=== PATIENT | male | born 1945 | race Caucasian/White ===

== ENCOUNTER → 2016-08-12 | Outpatient (CLI) | payer OTHER | LOC: BHFA 10:00 | PROVIDERS: ATTEND Internal Medicine Cardiovascular Disease | DX: R06.02 Shortness of breath (principal); I50.22 Chronic systolic (congestive) heart failure ==

== ENCOUNTER → 2017-06-01 | Outpatient (CLI) | payer OTHER | LOC: FIMAGING 07:57 | PROVIDERS: ATTEND Physician Assistant | DX: K80.20 Calculus of gallbladder without cholecystitis without obstruction (principal) ==

== ENCOUNTER → 2017-06-17 | Outpatient (CLI) | payer OTHER | LOC: BHFA 08:30 | PROVIDERS: ATTEND Internal Medicine Cardiovascular Disease | DX: I50.9 Heart failure, unspecified (principal) ==

== ENCOUNTER 2017-06-25 07:57 | Day surgery (SDC) | payer OTHER ==
[2017-06-25] MEDS ORDERED: LIDOCAINE 1% 2 ML INJ ID PRN (08:05)
[2017-06-25] MEDS ORDERED: ceFAZolin 2 GM/SWFI 2 GM/20 ML SYR IVP ONE (08:05)
[2017-06-25] MEDS ORDERED: LR 1,000 ML IV ONE (08:05)
[2017-06-25] MEDS ORDERED: HEPARIN 1000 UNIT/1 ML MDV ONE (08:47)
[2017-06-25] MEDS ORDERED: BUPIVACAINE 0.5% 30 ML SDV ONE (08:47)
[2017-06-25] MEDS ORDERED: ceFAZolin 1 GM VIAL ONE (08:48)
[2017-06-25] MEDS ORDERED: MIDAZOLAM 2 MG/2 ML VIAL IVP ONE ×2 (09:10→09:59)
--- NOTE | 2017-06-25 09:10 | PDANEPAE ---
ANE History of Present Illness h/o nonischemic heart failure p/f lap yuniel. ICD reprogrammed by [facility] rep in pre-op - set to DOO pacing at 75 bpm. Rep will reactivate ICD in PACU. ANE Past Medical History - Cardiovascular History Hx Hypertension: No Hx Arrhythmias: Yes Hx Chest Pain: No Hx CHF / Valvular Disease: Yes Hx Palpitations: Yes Cardiovascular History Comment: PACER/DEFIB. TRICUSPID/MITRAL VALVE. RUNS LOW BP @80s/60 - Pulmonary History Hx COPD: No Hx Asthma/Reactive Airway Disease: Yes Hx Recent Upper Respiratory Infection: No Hx Oxygen in Use at Home: No Hx Sleep Apnea: No Sleep Apnea Screening Result - Last Documented: Negative - Neurologic History Hx Cerebrovascular Accident: No Hx Seizures: No Hx Dementia: No Neurologic History Comment: OCCAS HEADACHES - Endocrine History Hx Diabetes: No Hypothyroid: No Hyperthyroid: No Obesity: no - Renal History Hx Renal Disorders: No - Liver History Hx Hepatic Disorders: No Hepatic History Comment: MILD NAUSEA W/GALL BLADDER - Neurological & Psychiatric Hx Hx Neurological and Psychiatric Disorders: No - Cancer History Hx Cancer: No - Congenital Disorder History Hx Congenital Disorders: No - GI History GERD: no Hx Gastrointestinal Disorders: Yes Gastrointestinal History Comment: GASTRITIS -- MILD. MILD NAUSEA - Other Health History Other Health History: DRY SKIN. DVT IN PAST - Surgical History Prior Surgeries: ABLATION CARDIAC. IMPLANT PACER/DEFIB ANE Review of Systems Review of systems is: negative Review of Systems: - Exercise capacity METS (RN): 4 METS - Pacemaker Pacemaker Type: Permanent Pacer/Defib Pacemaker Senior Software Analyst: [employer] Pacemaker Model: [id number] Date Pacemaker Last Checked: 03/24/18 ANE Patient History - Allergies Allergies/Adverse Reactions: No Known Allergies Allergy (Unverified 06/05/13 03:37) - Home Medications Home medications: home medication list seen and reviewed Home Medications: Aspirin [Aspirin 81mg] 81 mg PO DAILY 12/04/10 [Last Taken 06/23/17 21:00] CARVEDILOL 25 mg PO BID 12/04/10 [Last Taken 06/25/17 06:30] Zolpidem Tartrate [Ambien] 5 mg PO HSPRN PRN 12/04/10 [Last Taken 06/24/17 21:00 ] Entresto 24 mg/26 mg (RX) 06/24/17 [Last Taken 06/25/17 06:00 12 mg] Lasix 06/24/17 [Last Taken 06/24/17 06:00] Eplerenone 06/25/17 [Last Taken 06/24/17 06:30] Potassium Chloride 20 meq PO DAILY 06/25/17 [Last Taken 06/24/17 21:00] - NPO status NPO Since - Liquids (Date): 06/25/17 NPO Since - Liquids (Time): 06:30 NPO Since - Solids (Date): 06/24/17 NPO Since - Solids (Time): 19:00 - Smoking Hx Smoking Status: Never smoked - Family Anes Hx Family Hx Anesthesia Complications: NEG ANE Labs/Vital Signs - Vital Signs Blood Pressure: 92/68 Heart Rate: 63 Respiratory Rate: 16 O2 Sat (%): 93 Height: 181.61 cm Weight: 72.121 kg ANE Physical Exam - Airway Neck exam: FROM Mallampati Score: Class 1 Mouth exam: normal dental/mouth exam - Pulmonary Pulmonary: no respiratory distress - Cardiovascular Cardiovascular: regular rate and rhythym - ASA Status ASA Status: IV ANE Anesthesia Plan Anesthesia Plan: general endotracheal anesthesia Lines/Monitors: arterial line
[2017-06-25] MEDS ORDERED: fentaNYL 100 MCG/2 ML INJ ONE ×3 (09:14→11:52)
--- NOTE | 2017-06-25 09:14 | PDHPUP ---
History & Physical Update H&P update statement: This history and physical update is based on an assessment of the patient which was completed after admission or registration (within 24 hours), but prior to the surgery/procedure.
[2017-06-25] MEDS ORDERED: LIDOCAINE 2% 5 ML SDV ONE (09:15)
[2017-06-25] MEDS ORDERED: EPINEPHrine 1 MG/10 ML SYR IVP ONE (09:21)
[2017-06-25] MEDS ORDERED: ROCURONIUM 50 MG/5 ML VIAL ONE ×2 (09:56)
[2017-06-25] MEDS ORDERED: DEXAMETHASONE 4 MG/ML VIAL ONE (09:57)
[2017-06-25] MEDS ORDERED: ceFAZolin 1 GM/5 ML SYR ONE (09:59)
[2017-06-25] MEDS ORDERED: OXYCODONE/APAP 5/325 TAB PO PRN (10:29)
[2017-06-25] MEDS ORDERED: ONDANSETRON 4 MG/2 ML VIAL IVP PRN (10:29)
[2017-06-25] MEDS ORDERED: HYDROmorphONE/DILAUDID 1 MG/ML INJ IVP PRN (10:29)
[2017-06-25] MEDS ORDERED: HYDROCODONE/APAP 5/325 TAB PO PRN (10:29)
[2017-06-25] MEDS ORDERED: NALOXONE HCL 0.4 MG/ML INJ IVP PRN (10:29)
[2017-06-25] MEDS ORDERED: LR 500 ML IV PRN (10:29)
[2017-06-25] MEDS ORDERED: ALBUTEROL 3 ML DEYVIAL IH PRN (10:29)
[2017-06-25] MEDS ORDERED: ACETAMINOPHEN 500 MG TAB PO PRN (10:29)
[2017-06-25] MEDS ORDERED: METOCLOPRAMIDE 10 MG/2 ML VIAL IVP PRN (10:29)
[2017-06-25] MEDS ORDERED: PHENYLEPHRINE HCL 100 MCG/ML SYR IVP PRN (10:29)
[2017-06-25] MEDS ORDERED: PROMETHAZINE HCL 25 MG/ML INJ IVP PRN (10:29)
--- NOTE | 2017-06-25 11:16 | POSTOPPROG ---
Post Op Note Date of Operation: 06/25/17 Surgeon: Massiel Meek Gluing Machine Adjuster: [place] Anesthesiologist: Catr[place]ita Anesthesia: GET(General Endotracheal) Pre-op Diagnosis: Cholecystitis Post-op Diagnosis: same Indication: same Procedure: Lap Chayo and wedge liver biopsy Findings: Subacute cholecystitis and probably mild cardia cirrosis Inf/Abcess present in the surg proc area at time of surgery?: No EBL: Minimal
--- NOTE | 2017-06-25 11:53 | POSTANESTH ---
Post Anesthetic Evaluation Cardiovascular Status: Normal, Stable Respiratory Status: Normal, Stable Level of Consciousness/Mental Status: Can Participate in Eval Pain Control: Adequate, Prn Tx Ordered Nausea/Vomiting Control: Adequate, Prn Tx Ordered Complications Possibly Related to Anesthesia: None Noted
[2017-06-25] MEDS: fentaNYL 100 MCG/2 ML INJ IVP PRN ×2 (11:54→12:03)
[2017-06-25] MEDS ORDERED: HYDROmorphONE/DILAUDID 1 MG/ML INJ ONE (12:18)
[2017-06-25 15:11] VITALS: BP 94/70; RESP 16; TEMP 205.7; O2SAT 95
[2017-06-25 15:13] VITALS: PULSE 66
--- NOTE | 2017-06-26 21:01 | GOP ---
[f rep st] OPERATIVE REPORT DATE OF OPERATION: 06/25/2017 SURGEON: Luis Fernando Haider MD POUND ATTENDANT: Massiel Meek NP. PREOPERATIVE DIAGNOSIS: Chronic cholecystitis. POSTOPERATIVE DIAGNOSIS: Subacute cholecystitis and mild cardiac cirrhosis. PROCEDURE PERFORMED: Laparoscopic cholecystectomy and wedge liver biopsy. FINDINGS: Patient was found to have a markedly inflamed gallbladder which was firmly adherent to the hepatic fossa and some mild scarring and changes in the liver suggestive of cardiac cirrhosis. DESCRIPTION OF PROCEDURE: The patient was taken to the operating room where he received satisfactory general endotracheal anesthesia, placed in supine position, and prepped and draped in the usual ster ile fashion. An infraumbilical incision was made. A Veress needle inserted. Pneumoperitoneum was e stablished. Trocar was introduced. Laparoscope introduced. Good visualization was obtained. Three other trocars in the upper abdomen were placed under direct vision. The gallbladder was elevated up . Adhesions were taken down until the entire gallbladder could be exposed. The cystic triangle was carefully dissected free. The dissection was somewhat difficult because of the contracted nature of the inflamed gallbladder tissue and the thickness of the liver. The gallbladder was taken down from the fundus off the bed of the liver with electrocautery until the cystic triangle could be completely exposed. The cystic duct and cystic artery were dissected free, multiply hemoclipped and divided. After a clear view was established, much care to avoid the common bile duct, which was visualized. T he gallbladder was extracted by midline port site. There was 1 bleeding spot in the hepatic bed that was difficult to stop, but was eventually secured with hemoclips and electrocautery and then packed with some Daylin packing. Hemostasis was assured. Trocars removed under direct vision. Trocar site s were closed with 0 Vicryl for the fascia, 4-0 Monocryl subcuticular stitch for the skin, and all la yers were infiltrated with 0.5% Marcaine. Blood loss was negligible. Taken to recovery room in good condition having appropriate vital signs. A wedge biopsy was taken of the right lobe of the liver a nd that specimen was removed and sent to Pathology. Hemostasis was obtained with electrocautery. Th is was done prior to removal of the trocars obviously. /[id number]/MODL
== END 2017-06-25 15:14 | disposition home or self-care (01) ==
LOC: FSGY 07:57
PROVIDERS: ATTEND Surgery
PROC: 0FB14ZX Excision of Right Lobe Liver, Percutaneous Endoscopic Approach, Diagnostic (ICD-10-PCS; principal; 2017-06-25 09:45)
PROC: 0FT44ZZ Resection of Gallbladder, Percutaneous Endoscopic Approach (ICD-10-PCS; principal; 2017-06-25 09:45)
DX: K80.10 Calculus of gallbladder with chronic cholecystitis without obstruction (principal); K74.0 Hepatic fibrosis; K29.70 Gastritis, unspecified, without bleeding; I50.23 Acute on chronic systolic (congestive) heart failure; J45.909 Unspecified asthma, uncomplicated; E03.9 Hypothyroidism, unspecified; I10 Essential (primary) hypertension; G47.00 Insomnia, unspecified; E55.9 Vitamin D deficiency, unspecified; Z79.899 Other long term (current) drug therapy; Z95.810 Presence of automatic (implantable) cardiac defibrillator; Z88.2 Allergy status to sulfonamides
CPT/HCPCS: J0690; J1100; J1170; J2250; J3010

== ENCOUNTER → 2017-09-01 | Outpatient (CLI) | payer OTHER | LOC: BHFA 11:00 | PROVIDERS: ATTEND Internal Medicine Cardiovascular Disease | DX: I50.9 Heart failure, unspecified (principal) ==

== ENCOUNTER 2018-02-24 18:32 | Emergency (ER) | payer OTHER ==
--- NOTE | 2018-02-24 19:54 | EDPHY ---
H & P Smoking Status: Never smoked Time Seen by Provider: 02/24/18 18:55 HPI/ROS: 72-year-old male here with laceration to the left 2nd digit. States he was using a knife to cut vegetables when he slipped and cut the extensor aspect of the distal phalanx of left 2nd digit. He is taking Coumadin and had a difficult time controlling the bleeding at home. Denies any numbness or loss of range of motion. (Abhilash Nicholson) Physical Exam: General: Alert and oriented. Nontoxic appearing. No acute distress HEENT: Pupils PERRLA. No oral lesions. Cardiopulmonary: Regular rate and rhythm. No lower extremity edema Skin: [place] warm and dry. No lesions. 1.5 cm laceration just proximal to the fingernail of the left 2nd digit. No joint involvement. No nail bed injury. Muscle skeletal: Moving all 4 extremities. Equal strength in upper extremities and lower extremities. Ambulatory. (Abhilash Nicholson) Constitutional: Initial Vital Signs Temperature (C) 36.4 C 02/24/18 18:42 Heart Rate 60 02/24/18 18:42 Respiratory Rate 16 02/24/18 18:42 Blood Pressure 121/78 H 02/24/18 18:42 O2 Sat (%) 95 02/24/18 18:42 O2 Delivery Mode Room Air Allergies/Adverse Reactions: No Known Allergies Allergy (Verified 02/24/18 18:40) Home Medications: Medication Instructions Recorded CARVEDILOL 25 mg PO BID 12/04/10 Zolpidem Tartrate [Ambien] 5 mg PO HSPRN PRN 12/04/10 Entresto 24 mg/26 mg (RX) 06/24/17 Lasix 06/24/17 Eplerenone 06/25/17 Potassium Chloride 20 meq PO DAILY 06/25/17 Coumadin 02/24/18 Medical Decision Making Procedures: Procedure: Laceration repair. Verbal consent was obtained from the patient. The finger laceration on the left 2nd digit was anesthetized in the usual fashion. The wound was irrigated, draped and explored to its base. There were no deep structures involved. No tendon injury was identified. The wound was repaired with 5-0 nylon. Four simple sutures were placed. The wound repair was well approximated. Surgicel was used to control bleeding. The procedure was performed by myself. (Abhilash Nicholson) ED Course/Re-evaluation: I did not see this patient while he was in the emergency department. However his care was discussed with the PA while the patient was in the department. I agree with treatment plan and management (Piyush Fan) Differential Diagnosis: Joint injury, tendon injury, foreign body, uncontrolled bleeding (Abhilash Nicholson) Departure - Departure Disposition: Home, Routine, Self-Care Clinical Impression: Finger laceration Condition: Good Instructions: Laceration (ED) Additional Instructions: Follow-up in 1 week for suture removal. Referrals: Adam Valles MD [Primary Care Provider] - As per Instructions
[2018-02-24 20:13] VITALS: BP 92/53
== END 2018-02-24 20:13 | disposition home or self-care (01) ==
PROC: 0HQGXZZ Repair Left Hand Skin, External Approach (ICD-10-PCS; principal; 2018-02-24)
DX: S61.211A Laceration without foreign body of left index finger without damage to nail, initial encounter (principal); W26.0XXA Contact with knife, initial encounter; Y93.G1 Activity, food preparation and clean up; Y99.8 Other external cause status; Z79.01 Long term (current) use of anticoagulants

== ENCOUNTER → 2018-06-10 | Outpatient (CLI) | payer OTHER | LOC: BHFA 14:00 | PROVIDERS: ATTEND Internal Medicine Cardiovascular Disease | DX: I50.9 Heart failure, unspecified (principal); R06.02 Shortness of breath ==

== ENCOUNTER → 2018-07-15 | Outpatient (CLI) | payer OTHER | LOC: BHFA 15:30 | PROVIDERS: ATTEND Internal Medicine Cardiovascular Disease | DX: R06.02 Shortness of breath (principal); I50.9 Heart failure, unspecified; Z76.82 Awaiting organ transplant status ==

== ENCOUNTER 2018-09-26 14:56 | Emergency (ER) | payer OTHER ==
--- NOTE | 2018-09-26 16:49 | EDPHY ---
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 Is mostly on the right side and he finished his medications about last . The next day started having bilateral redness in his groin started 1st on the right now it is on both sides and a little bit on the back. It is itching and burning but not particularly painful. He started taking Keflex on Wednesday which was left over from previous and saw Dr. Gutierrez primary care on Wednesday told him to continue the antibiotic. Today his rash is still red and burning and itching. Not associated with fever or chills or urinary symptoms. REVIEW OF SYSTEMS: Eye: no change in vision ENT: no sore throat Cardiac: no chest pain or syncope Pulmonary: no cough or SOB Abdomen: no vomiting, diarrhea, abdominal pain Musculoskeletal: no back pain Skin: HPI Neuro: no headache Constitutional: no fever : no urinary symptoms A comprehensive 10 point review of systems is otherwise negative aside from elements mentioned in the history of present illness. PAST MEDICAL HISTORY: Includes heart failure, AICD, hypercholesterolemia. On warfarin Social history: , nonsmoker Temperature 36.4 degrees General Appearance: Alert and conversant, cooperative. Eyes: No scleral icterus. ENT, Mouth: Normal mucous membranes. Respiratory: Normal respiratory effort, breath sounds equal, lungs are clear to auscultation. Cardiovascular: Regular rate and rhythm. Gastrointestinal: Abdomen is soft and non tender. Neurological: Alert, face symmetric, normal motor and sensory in extremities. Skin: Patient has erythema in both groins which is dry and not wet. Has the appearance of vasculitis with a nonblanching redness. Not raised. There is faint erythema on his lower back extending into his proximal buttocks. There is not tender to palpation and only very slightly warm. No lymphangitis. No eschar or crepitus or vesicles. No satellite lesions. Non blanchable. Musculoskeletal: No peripheral edema. Psychiatric: Not agitated. Emergency Department course/MDM: Discussed with Dr. Hughes at 1741. We are in agreement this is not likely to be infection, differential includes but not limited to inflammatory or autoimmune or vasculitis or drug related. Normal WBC, afebrile, normal sedimentation rate and CRP. The patient and state they are comfortable with observation and they will follow up with ID in the clinic tomorrow. I think this is unlikely to be zoster or Fourniers (doesn't involve the scrotum ) or fungal infection. Smoking Status: Never smoked Constitutional: Initial Vital Signs Heart Rate 62 09/26/18 15:04 Respiratory Rate 16 09/26/18 15:04 Blood Pressure 109/74 09/26/18 15:04 O2 Sat (%) 95 09/26/18 15:04 O2 Delivery Mode Room Air Allergies/Adverse Reactions: No Known Allergies Allergy (Verified 02/24/18 18:40) Home Medications: Medication Instructions Recorded CARVEDILOL 25 mg PO BID 12/04/10 Zolpidem Tartrate [Ambien] 5 mg PO HSPRN PRN 12/04/10 Entresto 24 mg/26 mg (RX) 06/24/17 Lasix 06/24/17 Eplerenone 06/25/17 Potassium Chloride 20 meq PO DAILY 06/25/17 Coumadin 02/24/18 Cephalexin 09/26/18 Medical Decision Making - Data Points Laboratory Results: Laboratory Results 09/26/18 16:53 09/26/18 16:53 09/26/18 09/26/18 09/26/18 16:53 16:53 16:53 WBC 5.28 10^3/uL 10^3/uL (3.80-9.50) RBC 4.99 10^6/uL 10^6/uL (4.40-6.38) Hgb 15.6 g/dL g/dL (13.7-17.5) Hct 44.7 % % (40.0-51.0) MCV 89.6 fL fL (81.5-99.8) MCH 31.3 pg pg (27.9-34.1) MCHC 34.9 g/dL g/dL (32.4-36.7) RDW 13.2 % % (11.5-15.2) Plt Count 147 10^3/uL L 10^3/uL (150-400) MPV 11.6 fL fL (8.7-11.7) Neut % (Auto) 53.3 % % (39.3-74.2) Lymph % (Auto) 24.2 % % (15.0-45.0) [place] % (Auto) 12.5 % % (4.5-13.0) Eos % (Auto) 8.7 % H % (0.6-7.6) Baso % (Auto) 1.1 % % (0.3-1.7) Nucleat RBC Rel Count 0.0 % % (0.0-0.2) Absolute Neuts (auto) 2.81 10^3/uL 10^3/uL (1.70-6.50) Absolute Lymphs (auto) 1.28 10^3/uL 10^3/uL (1.00-3.00) Absolute Monos (auto) 0.66 10^3/uL 10^3/uL (0.30-0.80) Absolute Eos (auto) 0.46 10^3/uL H 10^3/uL (0.03-0.40) Absolute Basos (auto) 0.06 10^3/uL 10^3/uL (0.02-0.10) Absolute Nucleated RBC 0.00 10^3/uL 10^3/uL (0-0.01) Immature Gran % 0.2 % % (0.0-1.1) Immature Gran # 0.01 10^3/uL 10^3/uL (0.00-0.10) ESR 2 MM/HR MM/HR (0-20) PT 25.1 SEC H SEC (12.0-15.0) INR 2.42 H (0.83-1.16) Sodium 134 mEq/L L mEq/L (135-145) Potassium 5.6 mEq/L H mEq/L (3.5-5.2) Chloride 99 mEq/L mEq/L (97-110) Carbon Dioxide 25 mEq/l mEq/l (22-31) Anion Gap 10 mEq/L mEq/L (6-14) BUN 34 mg/dL H mg/dL (7-23) Creatinine 1.0 mg/dL mg/dL (0.7-1.3) Estimated GFR > 60 Glucose 87 mg/dL mg/dL (70-100) Calcium 9.5 mg/dL mg/dL (8.5-10.4) C-Reactive Protein 6.8 mg/L mg/L (<10.0) Specimen Hemolysis 110 Departure - Departure Disposition: Home, Routine, Self-Care Clinical Impression: Rash Condition: Good Instructions: Acute Rash (ED) Additional Instructions: Follow-up in Infectious Disease Clinic tomorrow as already arranged. INR 2.42 Referrals: Adam Valles MD [Primary Care Provider] - As per Instructions William Hughes MD [Medical Doctor] - As per Instructions
[2018-09-26 17:09] LABS: PLATELET COUNT 147 10^3/uL (150-400)
[2018-09-26 18:13] LABS: INR 2.42 (0.83-1.16); PROTIME(PATIENT) 25.1 SEC (12.0-15.0)
[2018-09-26 18:51] VITALS: BP 106/72
== END 2018-09-26 18:51 | disposition home or self-care (01) ==
DX: R21 Rash and other nonspecific skin eruption (principal)